=== PATIENT | female | born 1980 | race Caucasian/White ===

== ENCOUNTER 2025-06-09 08:50 | Outpatient (AMB) | payer OTHER, SELFPAY ==
--- NOTE | 2025-06-09 08:56 | MHC.PC.OV ---
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: Director E Learning / pulmonary issue Sound Tester Required: No Accompanied by: Self / Same As Patient Allergies No Known Allergies Allergy (Verified 06/09/25 08:56) Medication List - Last Reconciled 06/09/25 by Geraldine Perez MD albuterol sulfate 90 mcg/actuation 1 puff inhalation Q4H PRN buprenorphine-naloxone 2-0.5 mg 1 film sublingual DAILY carbamide peroxide 6.5% (Ear Drops (carbamide peroxide)) 5 drps otic (ears) BID clobetasol 0.05% 1 appl topical BID fluticasone propionate 50 mcg/actuation 1 spray intranasal DAILY mometasone-formoterol 200-5 mcg/actuation (Dulera) 2 puffs inhalation BID omeprazole 40 mg PO QAM Tobacco use date assessed: 06/09/25 Dental Screening Dental Screen Date: 06/09/25 Did you have a dental visit in the last 12 months?: Yes Did you have a dental problem in the last 6 months where you did not have access to dental care?: No Was dental information given to patient?: Patient has dentist HPI HPI Comments History of Present Illness Details The patient is a 45 year old female with PMH of COPD/Asthma?, Juan Jose's esophagus, presenting to [facility] care with a new primary care physician. The patient has a history of breathing problems, suspected to be COPD vs asthma, for which she currently uses albuterol as needed, Dulera twice daily, and a DuoNeb nebulizer for severe symptoms. She was hospitalized at [facility] for one day in February for a breathing attack, where she required oxygen. She has an upcoming appointment with a judicial assistant at [facility] this Wednesday 06/13. She has a history of Pearl's esophagus diagnosed via endoscopy several years ago and is supposed to have surveillance endoscopies every five years. Her last endoscopy was over five years ago, and she is now due for a repeat procedure. She takes omeprazole 40 mg, and her GI specialist is Dr. Ayala. The patient is on buprenorphine, which is managed by [facility], and she is currently on the lowest dose while weaning off. The treatment originated from Tramadol use following an accident around . Other medical history includes eczema, for which she uses clobetasol cream, and a history of earwax buildup managed with ear drops. She also uses Flonase. She had a full physical in January where she was told she has prediabetes. She has no history of surgeries. Family history is significant for heart attacks in both grandfathers, diabetes in both her maternal and paternal grandfathers, chronic lymphocytic leukemia in her mother, prostate cancer in her father, and ovarian cancer in her paternal grandmother. There is no known family history of colon cancer. [facility] Family History (Updated 06/09/25 @ 09:16 by Geraldine Perez MD) Mother CLL (chronic lymphocytic leukemia) Father Prostate cancer Social History Housing: [place] Patient Tobacco Use Status: Former Tobacco user Tobacco use type: Cigarette Years Smoked: 16 years-quit 14 years ago e-Cigarette/Vaping Use: Never Used service: No Current occupational status: employed Current occupation: [employer] Cognitive needs: No Hearing needs: No Vision needs: Yes Questionnaire PHQ-9 Over the last 2 weeks, how often have you been bothered by any of the following problems? 1. Little interest or pleasure in doing things: not at all 2. Feeling down, depressed, or hopeless: not at all 3. Trouble falling or staying asleep, or sleeping too much: not at all 4. Feeling tired or having little energy: not at all 5. Poor appetite or overeating: not at all 6. Feeling bad about yourself - or that you are a failure or have let yourself or your family down: not at all 7. Trouble concentrating on things, such as reading the newspaper or watching television: not at all 8. Moving or speaking so slowly that other people could have noticed. Or the opposite - being so fidgety or restless that you have been moving around a lot more than usual: not at all 9. Thoughts that you would be better off or of hurting yourself in some way: not at all Total score: 0 Depression Screening Interpretation: Negative Depression Screening Done: Yes Source: Developed by Drs. Aron L. KwameCristina blood Kurt Kroenke and colleagues, with an educational landen from [employer]. Thrive Questionnaire Date Thrive assessed: 06/09/25 I am a: Patient What is your living situation today?: I have a steady place to live Within the past 12 months, did the food you bought not last and you didn't have the money to get more?: Never true Within the past 12 months, did you worry whether your food would run out before you got money to buy more?: Never true Do you have trouble paying for medicines?: No Do you have trouble getting transportation to medical appointments?: No Do you have trouble paying your heating and electricity bill?: No Do you have trouble taking care of your child, family member or friend?: No Do you have trouble with day-to-day activities such as bathing, preparing meals, shopping, managing finances, etc.?: No Are you currently unemployed and looking for a job?: No Are you interested in more education?: No Please select the resources that you would like help with: None Currently or been in a relationship where the following occur: No concerns reported THRIVE Score: 0 AUDIT C Alcohol Use Questionnaire (AUDIT-C) 1. How often do you have a drink containing alcohol?: Never 3. How often do you have six or more drinks on one occasion?: Never Total Score: 0 NILA-7 AMB Questionnaire NILA-7 Date NILA - 7 assessed: 06/09/25 Feeling nervous, anxious, or on edge: 0 = Not at all Not being able to stop or control worryin = Not at all Worrying too much about different things: 0 = Not at all Trouble relaxin = Not at all Being so restless that it is hard to sit still: 0 = Not at all Becoming easily annoyed or irritable: 0 = Not at all Feeling afraid as if something awful might happen: 0 = Not at all Total NILA-7 score (0-4 normal; 5-9 mild; 10-14 moderate; 15-21 severe): 0 Source: Developed by Cristina Campos Kurt Kroenke and colleagues, with an educational landen from [employer]. Review of Systems Const Details: As per HPI. Physical exam (Primary Care) Vital Signs: Last Vital Signs Temp 97.5 F 06/09/25 08:58 Pulse 67 06/09/25 08:58 Resp 18 06/09/25 08:58 BP 112/72 06/09/25 08:58 Pulse Ox 95 06/09/25 08:58 Oxygen Delivery Method Room Air 06/09/25 08:58 BMI result Body Mass Index 30.0 Tobacco/Smoking Status: Tobacco use Status Tobacco use date assessed 06/09/25 06/09/25 09:06 Patient Tobacco Use Status Former Tobacco user 06/09/25 09:06 Tobacco use type Cigarette 06/09/25 09:06 e-Cigarette/Vaping Use Never Used 06/09/25 09:06 PHQ-9: PHQ-9 Score PHQ-9: Total score 0 06/09/25 09:06 Depression Screening Interpretation: Negative Thrive Assessment: Date of Thrive Assessment Date Thrive assessed 06/09/25 06/09/25 09:06 Currently or been in a relationship where the following occur: No concerns reported Const Other: Pertinent findings are in BOLD GENERAL APPEARANCE NAD, activity normal for age, well developed/ well nourished, no cyanosis, pallor, or diaphoresis. EYES lids/conjunctiva normal. EARS/NOSE/THROAT Mucous membranes moist, nares normal, lips/teeth normal uvula midline without oral pharyngeal erythema, exudate or swelling TMs normal bilaterally. No lymphangitis/lymphedema. HEAD/NECK normocephalic atraumatic, no facial trauma, neck is supple. RESPIRATORY respiratory effort normal, speaks in full sentences, no tripod position, no accessory muscle use. Lungs clear to auscultation without rhonchi, wheezes, rales CARDIAC Regular rate and rhythm, no edema. ABDOMINAL Soft, ND/NT. No evidence of fluid wave. No pulsatile masses on exam, rebound tenderness, Whitley sign or pain over Mcburney's point. MUSCLES/EXTREMITIES No abnormal range of motion, no swelling. SKIN Warm, pink and dry. No rashes, dermatoses, petechiae or lesions. NEUROLOGICAL Speech is clear and appropriate. Normal level of consciousness. Gait and coordination are normal. 5/5 strength in all extremities. PSYCH Normal mood and affect. Judgement/competence is appropriate Coding Level of Care Code New Pt Level 4 (88975) Diagnoses Healthcare maintenance Z00.00 Asthma J45.909 Pearl esophagus K22.70 Opioid use disorder in remission F11.91 Time Spent (min) 45 Assessment & Plan Assessment & Plan (1) Healthcare maintenance: Code(s): Z00.00 - Encounter for general adult medical examination without abnormal findings Category: Medical Plan: General labs ordered. Rest of healthcare maintenance will be reviewed with her next physical. Confirmed that the patient is established with N[facility] SHIFT MANAGER. (2) Asthma: Code(s): J45.909 - Unspecified asthma, uncomplicated Category: Medical Plan: - The patient will continue her current regimen of albuterol as needed, Dulera twice daily, and DuoNeb via nebulizer for severe symptoms. - Refills for albuterol and Dulera provided. - The patient will proceed with her scheduled appointment with a judicial assistant this Monday to further evaluate her breathing issues. (3) Pearl esophagus: Code(s): K22.70 - Pearl's esophagus without dysplasia Category: Medical Plan: - The patient will continue taking omeprazole 40 mg daily, and a refill was provided. - The patient was advised to schedule a follow-up appointment with her GI specialist, Dr. Ayala, as she is overdue for a surveillance endoscopy. - A new referral will be provided if required. (4) Opioid use disorder in remission: Code(s): F11.91 - Opioid use, unspecified, in remission Category: Medical Plan: - She was on Tramadol in the past after an accident which has been weaned off. - Was on Suboxone prior and currently on Buprenorphine. - [facility], and she is currently in the process of weaning off the medication. - She will continue to follow up with that provider for management. Plan I met with this 45-year-old female today to establish primary care. We reviewed her ongoing medical conditions, including her asthma, which is managed with multiple inhalers, and her history of Pearl's esophagus. I will provide refills for her albuterol and Dulera inhalers and supported her plan to see a judicial assistant for further evaluation this week. I also refilled her omeprazole and advised her to schedule a surveillance endoscopy with her GI specialist, as she is overdue, offering a new referral if needed. We discussed her history of buprenorphine use, which is managed by another clinic where she is actively weaning off the medication. To establish baseline records, I ordered a comprehensive set of labs, including a CBC, CMP, lipid panel, A1c, and screenings for hepatitis C and HIV, to which she consented. Orders: Orders Complete Blood Count no Diff Today Z00.00 - Encounter for general adult medical examination without abnormal findings Comprehensive Met. Panel Today Z00.00 - Encounter for general adult medical examination without abnormal findings HIV Ab/Ag Today Z00.00 - Encounter for general adult medical examination without abnormal findings Lipid Panel Today Z00.00 - Encounter for general adult medical examination without abnormal findings Hemoglobin A1c Today Z00.00 - Encounter for general adult medical examination without abnormal findings Hepatitis C Antibody Reflex Today Z00.00 - Encounter for general adult medical examination without abnormal findings TSH reflex Free T4 Today Z00.00 - Encounter for general adult medical examination without abnormal findings Medications: New omeprazole 40 mg PO QAM 60 caps 3RF albuterol sulfate 90 mcg/actuation 1 puff inhalation Q4H PRN 8.5 grams 3RF shortness of breath or wheezing mometasone-formoterol 200-5 mcg/actuation (Dulera) 2 puffs inhalation BID 13 grams 3RF
[2025-06-09 08:58] VITALS: BP 112/72; PULSE 67; RESP 18; TEMP 36.4; O2SAT 95
--- OUTSIDE RECORDS SUMMARY | 2025-06-09 09:23 | XMS_ITS | Clinical Summary ---
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 Max Daily Amount: 1 film 5 Active omeprazole (PriLOSEC) [address] capsule Take 1 capsule (40 mg total) by mouth 1 (one) time each day. 5 Active Ventolin HFA 90 mcg/actuation inhaler Inhale 1 puff by mouth every 4 (four) hours if needed for shortness of breath or wheezing. 6.7 g 1 5 Active ipratropium-alb uteroL (DUONEB) 0.5-2.5 mg/3 mL nebulizer solution Take 3 mL by nebulization every 6 (six) hours if needed for wheezing or shortness of breath for up to 42 doses. 126 mL 5 Active mometasone-form oterol (DULERA 200) 200-5 mcg/actuation inhaler Inhale 2 puffs by mouth 2 (two) times a day. Rinse mouth with water after use to reduce aftertaste and incidence of candidiasis. Do not swallow. 1 each 1 5 Active fluticasone propionate (FLONASE) 50 mcg/actuation nasal spray Administer 1 spray into each nostril 1 (one) time each day. Shake gently. Before first use, prime pump. After use, clean tip and replace cap. 16 g 1 Active Active Problems Problem Noted Date Diagnosed Date Reactive airway disease 03/11/2025 Encounters Date Type Department Care Team Description 03/11/2025 8:10 PM EDT - 03/12/2025 2:49 PM EDT Hospital Encounter [facility]rology [facility] [address] [place] [address] Wale Guerrier MD Jones, Christopher, MD Santoyo-Pacheco, Omar D, MD Acute respiratory failure with hypoxia [place] [place] [facility] [place] (Primary Dx); Exacerbation of asthma, unspecified asthma severity, unspecified whether persistent; Other emphysema [place] [place] [facility]28) Discharge Disposition: Home or Self Care from Last 3 Months Medical History Medical History Date Comments Opiate dependence [place] [place] [facility] [place] GERD (gastroesophageal reflux disease) Family History Medical History Relation Name Comments Cancer Maternal Grandmother Diabetes Other Coronary artery disease Paternal Grandmother Relation Name Status Comments Maternal Grandmother Other Paternal Grandmother Social History Tobacco Use Types Packs/Day Years Used Date Smoking Tobacco: Former Cigarettes Smokeless Tobacco: Never Tobacco Cessation:Counseling Given: Not Answered Comments:Quit 2013 Alcohol Use Standard Drinks/Week Comments Yes 0 (1 standard drink = 0.6 oz pur e alcohol) Very rare Interpersonal Safety Answer Date Record ed Physical Abuse Unrecognized value 03/12/2025 Verbal Abuse Unrecognized value 03/12/2025 Comments Unknown Sex and Gender Information Value Date Recorded Sex Assigned at Not on file Legal Sex Female 7:05 AM EST Gender Identity Not on file Sexual Orientation Not on file Last Filed Vital Signs Vital Sign Reading Time Taken Comments Blood Pressure 113/67 03/12/2025 8:35 AM EDT Pulse 93 03/12/2025 8:35 AM EDT Temperature 36.4 C (97.5 F) 03/12/2025 8:35 AM EDT Respiratory Rate 16 03/12/2025 8:35 AM EDT Oxygen Saturation 99% 03/12/2025 8:35 AM EDT Inhaled Oxygen Concentration - - Weight 80.7 kg (178 lb) 03/12/2025 12:29 AM EDT Height 160 cm (5' 2.99 ) 03/12/2025 12:29 AM EDT Body Mass Index 31.54 03/12/2025 12:29 AM EDT Plan of Treatment Health Maintenance Due Date Last Done Comments Breast Cancer Screening 1982 DTaP,Tdap,and Td Vaccines (1 - Tdap) 2001 Hepatitis A Vaccines (1 of 2 - Risk 2-dose series) 2001 Hepatitis B Vaccines (1 of 3 - 19+ 3-dose series) 2001 Pneumococcal Vaccine: Pediat rics (0 to 5 Years) and At-Risk Patients (6 to 49 Years) (1 of 2 - PCV) 2001 Cervical Cancer Screening: P ap Smear 2003 HPV Vaccines (1 - 3-dose SCD M series) 2009 HIV Screening 05/22/2022 Social Influencers of Health Screening 05/22/2022 Depression Screening 06/19/2024 COVID-19 Vaccine (1 - 2024-2 6 season) 2025 Influenza Vaccine (#1) 2025 Cholesterol Screening (Lipid Panel) 02/13/2030 02/13/2025 RSV Immunization Adult Patie nts (1 - 1-dose 75+ series) 2057 Hepatitis C Screening Completed 02/13/2025 HIB Vaccines Aged Out No longer eligi ble based on patient's age to complete this topic IPV Vaccines Aged Out No longer eligi ble based on patient's age to complete this topic MMR Vaccines Aged Out No longer eligi ble based on patient's age to complete this topic Meningococcal ACWY Vaccine Aged Out N o longer eligible based on patient's age to complete this topic Meningococcal B Vaccine Aged Out No l onger eligible based on patient's age to complete this topic RSV Immunization Patients Un deric 20 months Aged Out No longer eligible b ased on patient's age to complete this topic Varicella Vaccines Aged Out No longer eligible based on patient's age to complete this topic Procedures Procedure Name Priority Date/Time Associated Diagnosis Comments PEP THERAPY Routine 03/12/2025 8:58 AM EDT HOME O2 EVAL (DESATURATION SCREEN) Routine 03/12/2025 8:43 AM EDT CBC WITH AUTO DIFFERENTIAL Routine 03/12/2025 5:58 AM EDT CBC AND DIFFERENTIAL Routine 03/12/2025 5:58 AM EDT BASIC METABOLIC PANEL Routine 03/12/2025 5:58 AM EDT RESPIRATORY VIRUS PANEL MOLECULAR STUDY STAT 03/12/2025 12:[address] ANGIO CHEST WO AND/OR W CONTRAST STAT 03/11/2025 10:15 PM EDT Acute respiratory failure with hypoxia (CMS/HCC V24, CMS/HCC V28) XR CHEST 1 VIEW STAT 03/11/2025 9:26 PM EDT C-REACTIVE PROTEIN Add-On 03/11/2025 8: 43 PM EDT HCG, SERUM, QUALITATIVE STAT Add-on 03/11/2025 8:43 PM EDT B-TYPE NATRIURETIC PEPTIDE STAT 03/11/2025 8:43 PM EDT TROPONIN I HIGH SENSITIVITY STAT 03/11/2025 8:43 PM EDT COMPREHENSIVE METABOLIC PANEL STAT 03/11/2025 8:43 PM EDT CBC WITH AUTO DIFFERENTIAL STAT 03/11/2025 8:43 PM EDT CBC AND DIFFERENTIAL STAT 03/11/2025 8:43 PM EDT ECG 12-LEAD STAT 03/11/2025 8:21 PM EDT TX CRITICAL CARE 30-74 MINUTES Routine 03/11/2025 8:07 PM EDT HEPATITIS C VIRUS QUANTITATIVE PCR Routine 02/13/2025 7:16 AM EDT Laboratory tests ordered as part of a complete physical exam (CPE) Palpitations Low libido Need for hepatitis C screening test LIPID PANEL WITH REFLEX TO DIRECT LDL Routine 02/13/2025 7:16 AM EDT Laboratory tests ordered as part of a complete physical exam (CPE) Palpitations Low libido Need for hepatitis C screening test from Last 3 Months or Most Recently Relevant to Health Maintenance Results * (ABNORMAL) CBC auto differential (03/12/2025 5:58 AM EDT) Only the most recent of2 resultswithin the time period is included. WBC 10.4 4.8 - 10.8 K/mcL LAB HEMETOLOGY METHOD 03/12/2025 6:46 AM [facility] RBC 5.60(H) 3.80 - 4.80 M/mcL LAB HEMETOLOGY METHOD 03/12/2025 6:46 AM [facility] Hemoglobin 15.6 11.5 - 16.0 g/dL LAB HEMETOLOGY METHOD 03/12/2025 6:46 AM [facility] Hematocrit 46.7 35.0 - 47.0 % LAB HEMETOLOGY METHOD 03/12/2025 6:46 AM [facility] MCV 84.0 79.0 - 98.0 FL LAB HEMETOLOGY METHOD 03/12/2025 6:46 AM [facility] MCH 28.1 27.0 - 32.0 pcg LAB HEMETOLOGY METHOD 03/12/2025 6:46 AM [facility] MCHC 33.4 32.0 - 37.0 g/dL LAB HEMETOLOGY METHOD 03/12/2025 6:46 AM [facility] RDW 12.8 11.0 - 15.0 % LAB HEMETOLOGY METHOD 03/12/2025 6:46 AM [facility] Platelets 335 130 - 400 K/mcL LAB HEMETOLOGY METHOD 03/12[facility]25 6:[facility] MPV 9.1 7.0 - 11.0 FL LAB HEMETOLOGY METHOD 03/12/2025 6:46 AM [facility] NRBC 0.0 <1.0 % LAB HEMETOLOGY METHOD 03/12/2025 6:46 AM [facility] NRBC Absolute 0.00 <0.10 K/mcL LAB HEMETOLOGY METHOD 03/12/2025 6:46 AM [facility] Neutrophils Relative 91.1 % LAB HEMETOLOGY METHOD 03/12/2025 6:46 AM [facility] Lymphocytes Relative 7.5 % LAB HEMETOLOGY METHOD 03/12/2025 6:46 AM [facility] Monocytes Relative 1.0 % LAB HEMETOLOGY METHOD 03/12/2025 6:46 AM [facility] Eosinophils Relative 0.0 % LAB HEMETOLOGY METHOD 03/12/2025 6:46 AM [facility] Basophils Relative 0.1 % LAB HEMETOLOGY METHOD 03/12/2025 6:46 AM [facility] Immature Granulocytes Relative 0.3 % LAB HEMETOLOGY METHOD 03/12/2025 6:46 AM [facility] Neutrophils Absolute 9.43(H) 1.50 - 7.00 K/mcL LAB HEMETOLOGY METHOD 03/12/2025 6:46 AM [facility] Lymphocytes Absolute 0.78(L) 1.00 - 5.00 K/mcL LAB HEMETOLOGY METHOD 03/12/2025 6:46 AM [facility] Monocytes Absolute 0.10(L) 0.20 - 1.00 K/mcL LAB HEMETOLOGY METHOD 03/12/2025 6:46 AM [facility] Eosinophils Absolute 0.00 0.00 - 0.50 K/mcL LAB HEMETOLOGY METHOD 03/12/2025 6:46 AM EDT [facility] Basophils Absolute 0.01 0.00 - 0.20 K/[facility] LAB HEMETOLOGY METHOD 03/12/2025 6:46 AM EDT [facility] Immature Granulocytes Absolute 0.03 0.00 - 0.03 K/[facility] LAB HEMETOLOGY METHOD 03/12/2025 6:46 AM EDT [facility] Blood Venous blood specimen / Unknown Venipuncture / Unknown 03/12/2025 5:58 AM EDT 03/12/2025 6:13 AM EDT us Manish Thurston MD LAB BLOOD ORDERABLES Final Result [facility] [address] [place] [address], * (ABNORMAL) Basic metabolic panel (03/12/2025 5:58 AM EDT) Sodium 138 133 - 145 mmol/L LAB CHEMISTRY METHOD 03/12/2025 7:20 AM [facility] Potassium 4.1 3.5 - 5.5 mmol/L LAB CHEMISTRY METHOD 03/12/2025 7:20 AM [facility] Chloride 105 96 - 110 mmol/L LAB CHEMISTRY METHOD 03/12/2025 7:20 AM [facility] CO2 22 21 - 32 mmol/L LAB CHEMISTRY METHOD 03/12/2025 7:20 AM [facility] Anion Gap 11 3 - 11 LAB CHEMISTRY METHOD 03/12/2025 7:20 AM [facility] Glucose 163(H) 70 - 100 mg/dL LAB CHEMISTRY METHOD 03/12/2025 7:20 AM [facility] BUN 11 5 - 25 mg/dL LAB CHEMISTRY METHOD 03/12/2025 7:20 AM EDT [facility] Creatinine 0.81 0.50 - 1.10 mg/dL LAB CHEMISTRY METHOD 03/12/2025 7:20 AM EDT [facility] eGFR 93 >=60 mL/min/1. 73m2 LAB CHEMISTRY METHOD 03/12/2025 7:20 AM EDT [facility] Comment:Calculation based on the Chronic Kidney Disease Epidemiology Collaboration (CKD-EPI) equation refit without adjustment for race. BUN/Creatinine Ratio 13.6 LAB CHEMISTRY METHOD 03/12/2025 7:20 AM EDT [facility] Calcium 9.6 8.5 - 10.5 mg/dL LAB CHEMISTRY METHOD 03/12/2025 7:20 AM EDT [facility] Blood Venous blood specimen / Unknown Venipuncture / Unknown 03/12/2025 5:58 AM EDT 03/12/2025 6:13 AM EDT us Manish Thurston MD LAB BLOOD ORDERABLES Final Result [facility] [address] [place] [address], * Respiratory virus panel molecular study (03/12/2025 12:37 AM EDT) Pathologist [facility] Adenovirus Detection by PCR Not Detected Not Detected LAB MICROBIOLOGY METHOD 03/12/2025 1:49 AM EDT [facility] Influenza A PCR Not Detected Not Detected LAB MICROBIOLOGY METHOD 03/12/2025 1:49 AM EDT [facility] Influenza B PCR Not Detected Not Detected LAB MICROBIOLOGY METHOD 03/12/2025 1:49 AM EDT [facility] Coronavirus 229E Not Detected Not Detected LAB MICROBIOLOGY METHOD 03/12/2025 1:49 AM EDT [facility] Coronavirus HKU1 Not Detected Not Detected LAB MICROBIOLOGY METHOD 03/12/2025 1:49 AM EDT [facility] Coronavirus OC43 Not Detected Not Detected LAB MICROBIOLOGY METHOD 03/12/2025 1:49 AM EDT [facility] Coronavirus NL63 Not Detected Not Detected LAB MICROBIOLOGY METHOD 03/12/2025 1:49 AM EDT [facility] Parainfluenza Virus 1 Not Detected Not Detected LAB MICROBIOLOGY METHOD 03/12/2025 1:49 AM EDT [facility] Parainfluenza Virus 2 Not Detected Not Detected LAB MICROBIOLOGY METHOD 03/12/2025 1:49 AM EDT [facility] Parainfluenza Virus 3 Not Detected Not Detected LAB MICROBIOLOGY METHOD 03/12/2025 1:49 AM EDT [facility] Parainfluenza Virus 4 Not Detected Not Detected LAB MICROBIOLOGY METHOD 03/12/2025 1:49 AM EDT [facility] RSV PCR Not Detected Not Detected LAB MICROBIOLOGY METHOD 03/12/2025 1:49 AM EDT [facility] Human Metapneumovirus A and B Not Detected Not Detected LAB MICROBIOLOGY METHOD 03/12/2025 1:49 AM EDT [facility] Rhinovirus/Entero virus Not Detected Not Detected LAB MICROBIOLOGY METHOD 03/12/2025 1:49 AM EDT [facility] Bordetella pertussis Not Detected Not Detected LAB MICROBIOLOGY METHOD 03/12/2025 1:49 AM EDT [facility] Bordetella parapertussis Not Detected Not Detected LAB MICROBIOLOGY METHOD 03/12/2025 1:49 AM EDT [facility] Mycoplasma pneumo by PCR Not Detected Not Detected LAB MICROBIOLOGY METHOD 03/12/2025 1:49 AM EDT [facility] Chlamydia pneumoniae Not Detected Not Detected LAB MICROBIOLOGY METHOD 03/12/2025 1:49 AM EDT [facility] SARS COV-2 Not Detected Not Detected LAB MICROBIOLOGY METHOD 03/12/2025 1:49 AM EDT [facility] Swab Nasopharyngeal structure / Unknown Non-blood Collection / Unknown 03/12/2025 12:37 AM EDT 03/12/2025 12:53 AM EDT Narrative [facility] - 03/12/2025 1:49 AM EDT Testing was performed using the InboxFever Respiratory Pathogen PCR Assay. All results must be correlated with the clinical findings. Results should not be used as the sole basis for diagnosis. False Negative results may occur from the presence of sequence variants in the region targeted by the assay or the presence of inhibitors. Results may be affected by concurrent antiviral/antimicrobial therapy or levels of organisms that are below the limit of detection. us Manish Thurston MD LAB MICROBIOLOGY - GENERAL ORDERABLES Final Result [facility] [address] [place] [address], * CT Angio Chest wo and/or w Contrast (03/11/2025 10:15 PM EDT) Anatomical Region Laterality Modality Body Computed Tomogra phy 03/11/2025 10:5 9 PM EDT Impressions 03/11/2025 10:59 PM EDT 1. No acute intrathoracic findings. This document has been electronically signed by: Librado Anthony MD on 03/11/2025 22:59:35 Narrative 03/11/2025 10:59 PM EDT INDICATION: PE suspected, high prob CT angiography chest with contrast. 3D Postprocessing. Comparison: CR - XR CHEST 1 VW - 03/11/25 21:19 EDT Findings: The heart size is normal. RV/LV ratio is normal. The thoracic aorta is normal caliber. No pulmonary artery filling defects. The visualized thyroid and mediastinum are unremarkable. Minimal subsegmental atelectasis in the right upper lobe. No consolidation, pleural effusion or pneumothorax. The upper abdomen is unremarkable. No acute fractures. Procedure Note Librado Anthony MD - 03/11/2025 INDICATION: PE suspected, high prob CT angiography chest with contrast. 3D Postprocessing. Comparison: CR - XR CHEST 1 VW - 03/11/25 21:19 EDT Findings: The heart size is normal. RV/LV ratio is normal. The thoracic aorta is normal caliber. No pulmonary artery filling defects. The visualized thyroid and mediastinum are unremarkable. Minimal subsegmental atelectasis in the right upper lobe. No consolidation, pleural effusion or pneumothorax. The upper abdomen is unremarkable. No acute fractures. IMPRESSION: 1. No acute intrathoracic findings. This document has been electronically signed by: Librado Anthony MD on 03/11/2025 22:59:35 Wale Guerrier MD IMG CT PROCEDURES Final Resu lt * XR Chest 1 View (03/11/2025 9:26 PM EDT) Anatomical Region Laterality Modality Body Radiographic Fidelina ging 03/11/2025 10:5 9 PM EDT Impressions 03/11/2025 10:59 PM EDT 1. No acute findings. This document has been electronically signed by: Librado Anthony MD on 03/11/2025 22:59:15 Narrative 03/11/2025 10:59 PM EDT INDICATION: OTHER 1 view chest x-ray Comparison: CT - CT ANGIO CHEST WO AND OR W CONTRAST - 03/11/25 22:14 EDT DX/TX/SR - CHEST 2 VIEWS - 08/02/23 09:50 EST Findings: No consolidation or effusion. Heart size is normal. No acute fracture. Procedure Note Librado Anthony MD - 03/11/2025 INDICATION: OTHER 1 view chest x-ray Comparison: CT - CT ANGIO CHEST WO AND OR W CONTRAST - 03/11/25 22:14 EDT DX/TX/SR - CHEST 2 VIEWS - 08/02/23 09:50 EST Findings: No consolidation or effusion. Heart size is normal. No acute fracture. IMPRESSION: 1. No acute findings. This document has been electronically signed by: Librado Anthony MD on 03/11/2025 22:59:15 Wale Guerrier MD IMG XR PROCEDURES Final Resu lt * Troponin I High Sensitivity (03/11/2025 8:43 PM EDT) [facility] High Sensitivity Troponin I <3 <=54 ng/L LAB CHEMISTRY METHOD 03/11/2025 9:50 PM EDT [facility] Blood Venous blood specimen / Unknown Venipuncture / Unknown 03/11/2025 8:43 PM EDT 03/11/2025 9:18 PM EDT Narrative [facility] - 03/11/2025 9:50 PM EDT High levels of biotin in samples may falsely decrease hsTroponin values. Use caution when interpreting hsTroponin results in patients taking biotin who exhibit renal impairment (eGFR <60) or in patients taking more than 20 mg/day of biotin. Wale Guerrier MD LAB BLOOD ORDERABLES Final R esult Performing Organization Address City/[facility]/ZIP Co de Phone Number [facility] [address] [place] [address], * (ABNORMAL) C-reactive protein (03/11/2025 8:43 PM EDT) [facility] C-Reactive Protein 1.10(H) <=0.50 mg/dL LAB CHEMISTRY METHOD 03/12/2025 12:12 AM EDT [facility] Blood Venous blood specimen / Unknown Venipuncture / Unknown 03/11/2025 8:43 PM EDT 03/11/2025 9:18 PM EDT Manish Thurston MD LAB BLOOD ORDERABLES Final Result [facility] [address] [place] [address], [place] [phone] * hCG, serum, qualitative (03/11/2025 8:43 PM EDT) [facility] hCG Qual Negative Negative 03/11/2025 9:45 PM EDT [facility] Blood Venous blood specimen / Unknown Venipuncture / Unknown 03/11/2025 8:43 PM EDT 03/11/2025 9:18 PM EDT Wale Guerrier MD LAB BLOOD ORDERABLES Final R esult Performing Organization Address [facility]/ZIP Co de Phone Number [facility] [address] [place] [address], [place] [phone] * B-Type Natriuretic Peptide (BNP) (03/11/2025 8:43 PM EDT) Pathologist [facility] BNP 8 <=100 pcg/mL LAB CHEMISTRY METHOD 03/11/2025 10:46 PM EDT [facility] Blood Venous blood specimen / Unknown Venipuncture / Unknown 03/11/2025 8:43 PM EDT 03/11/2025 9:18 PM EDT Wale Guerrier MD LAB BLOOD ORDERABLES Final R esult Performing Organization Address City/[facility]/ZIP Co de Phone Number [facility] [address] [place] [address], [place] [phone] * (ABNORMAL) Comprehensive Metabolic Panel (CMP) (03/11/2025 8:43 PM EDT) Pathologist [facility] Sodium 139 133 - 145 mmol/L LAB CHEMISTRY METHOD 03/11/2025 9:58 PM EDT [facility] Potassium 4.1 3.5 - 5.5 mmol/L LAB CHEMISTRY METHOD 03/11/2025 9:58 PM EDT [facility] Chloride 105 96 - 110 mmol/L LAB CHEMISTRY METHOD 03/11/2025 9:58 PM EDT [facility] CO2 26 21 - 32 mmol/L LAB CHEMISTRY METHOD 03/11/2025 9:58 PM EDT [facility] Anion Gap 8 3 - 11 LAB CHEMISTRY METHOD 03/11/2025 9:58 PM [facility] Glucose 128(H) 70 - 100 mg/dL LAB CHEMISTRY METHOD 03/11/2025 9:58 PM [facility] BUN 11 5 - 25 mg/dL LAB CHEMISTRY METHOD 03/11/2025 9:58 PM [facility] Creatinine 0.84 0.50 - 1.10 mg/dL LAB CHEMISTRY METHOD 03/11/2025 9:58 PM [facility] eGFR 89 >=60 mL/min/1. 73m2 LAB CHEMISTRY METHOD 03/11/2025 9:58 PM [facility] Comment:Calculation based on the Chronic Kidney Disease Epidemiology Collaboration (CKD-EPI) equation refit without adjustment for race. BUN/Creatinine Ratio 13.1 LAB CHEMISTRY METHOD 03/11/2025 9:58 PM [facility] Calcium 9.3 8.5 - 10.5 mg/dL LAB CHEMISTRY METHOD 03/11/2025 9:58 PM [facility] AST (SGOT) 24 10 - 42 unit/L LAB CHEMISTRY METHOD 03/11/2025 9:58 PM [facility] ALT (SGPT) 20 10 - 60 unit/L LAB CHEMISTRY METHOD 03/11/2025 9:58 PM [facility] Alkaline Phosphatase 53 42 - 121 unit/L LAB CHEMISTRY METHOD 03/11/2025 9:58 PM [facility] Total Protein 7.7 6.0 - 8.0 g/dL LAB CHEMISTRY METHOD 03/11/2025 9:58 PM [facility] Albumin 4.1 3.2 - 5.0 g/dL LAB CHEMISTRY METHOD 03/11/2025 9:58 PM [facility] Total Bilirubin 0.4 0.0 - 1.4 mg/dL LAB CHEMISTRY METHOD 03/11/2025 9:58 PM [facility] Blood Venous blood specimen / Unknown Venipuncture / Unknown 03/11/2025 8:43 PM EDT 03/11/2025 9:18 PM EDT Wale Guerrier MD LAB BLOOD ORDERABLES Final R esult Performing Organization Address City/[facility]/ZIP Co de Phone Number [facility] [address] [place] [address], [place] [phone] * ECG 12 lead (03/11/2025 8:21 PM EDT) Ventricular Rate ECG 87 BPM GEMUSE Atrial Rate 87 BPM GEMUSE P-R Interval 150 ms GEMUSE QRS Duration 76 ms GEMUSE Q-T Interval 382 ms GEMUSE QTc 459 ms GEMUSE P Wave [place] 80 degrees GEMUSE R [place] 19 degrees GEMUSE T [place] 45 degrees GEMUSE ECG Interpretation Normal sinus rhythm with sinus arrhythmia Normal ECG No previous ECGs available Confirmed by MONA SINGH ([id number]) on 03/13/2025 11:08:42 AM GEMUSE 03/11/2025 8:21 PM EDT 03/13/2025 11:08 AM EDT Wale Guerrier MD ECG ORDERABLES Final Result Performing Organization Address City/[facility]/ZIP Co de Phone Number GEM[facility] * [place] CRITICAL CARE 30-74 MINUTES (03/11/2025 8:07 PM EDT) Narrative Wale Guerrier MD - 03/11/2025 8:07 PM EDT Wale Guerrier MD 03/12/2025 12:09 AM Critical Care Performed by: Wale Guerrier MD Authorized by: Wale Guerrier MD Critical care provider statement: Critical care time (minutes): 36 Total face to face critical care time (minutes): 20 Critical care time was exclusive of: Separately billable procedures and treating other patients Critical care was necessary to treat or prevent imminent or life-threatening deterioration of the following conditions: Circulatory failure, cardiac failure, respiratory failure and shock Critical care was time spent personally by me on the following activities: Development of treatment plan with patient or surrogate, discussions with consultants, evaluation of patient's response to treatment, ordering and review of laboratory studies, ordering and review of radiographic studies, re-evaluation of patient's condition, review of old charts, ordering and performing treatments and interventions, examination of patient, pulse oximetry and obtaining history from patient or surrogate Face to face critical care was time spent personally by me on the following activities: Examination of patient, evaluation of patient's response to treatment, obtaining history from patient or surrogate, re-evaluation of patient's condition, pulse oximetry and development of treatment plan with patient or surrogate I assumed direction of critical care for this patient from another provider in my specialty: no Care discussed with: admitting provider Comments: Acute asthma exacerbation respiratory failure requiring multiple DuoNebs and IV magnesium with reassessments us Wale Guerrier MD IN CLINIC/BEDSIDE ORDERABLES Final Result * (ABNORMAL) Lipid panel with reflex to direct LDL (02/13/2025 7:16 AM EDT) Cholesterol 165 0 - 200 mg/dL LAB CHEMISTRY METHOD 02/13/2025 11:54 AM [facility] [facility] Triglycerides 80 0 - 150 mg/dL LAB CHEMISTRY METHOD 02/13/2025 11:54 AM [facility] HDL 48 >=40 mg/dL LAB CHEMISTRY METHOD 02/13/2025 11:54 AM [facility] LDL Calculated 101(H) 0 - 100 mg/dL LAB CHEMISTRY METHOD 02/13/2025 11:54 AM [facility] Comment:Estimated LDL Calcul ated using equation: Total cholesterol - HDL cholesterol - (Triglycerides/5) VLDL Cholesterol Rufus 16 mg/dL LAB CHEMISTRY METHOD 02/13/2025 11:54 AM [facility] Non HDL Chol. (LDL+VLDL) 117 <145 mg/dL LAB CHEMISTRY METHOD 02/13/2025 11:54 AM [facility] Chol/HDL Ratio 3.4 0.0 - 4.4 LAB CHEMISTRY METHOD 02/13/2025 11:54 AM EDT [facility] Blood Venous blood specimen / Unknown Venipuncture / Unknown 02/13/2025 7:16 AM EDT 02/13/2025 7:[address] [facility] BLOOD ORDERABLES Final Resul t Performing Organization Address [facility] Co de Phone Number [facility] [address] [place] [address], [place] [phone] * Hepatitis C virus quantitative molecular study (02/13/2025 7:16 AM EDT) HCV Qual Interp Not Detected Not Detected LAB MOLECULAR DIAGNOSTICS METHOD 02/13/2025 2:33 PM EDT [facility] Comment:HCV RNA not detected , unable to report quantitative results. Blood Venous blood specimen / Unknown Venipuncture / Unknown 02/13/2025 7:16 AM EDT 02/13/2025 7:[address] [facility] LAB BLOOD ORDERABLES Final Resul t Performing Organization Address [facility] de Phone Number [facility] [address] [place] [address], [place] [phone] from Last 3 Months or Most Recently Relevant to Health Maintenance Insurance MEDICAID - [place] Advance Directives * Full Code - Default (Latest Code Status on File) Date Activated Date Inactivated Comments 03/11/2025 11:46 PM 03/12/2025 5:21 PM This is ord er is used when code status has not been discussed with the patient, or code status is otherwise unknown/unconfirmed To update the patient's code status, place a code status order. Do not modify or discontinue any currently active code status orders. Care Teams [employer] Relationship Specialty Start Date End Date Dillan Camarena DO [address] [place] [phone] PCP - General Internal Medicine 02/13/25
== END 2025-06-09 09:27 | disposition home or self-care (01) ==
LOC: HO.HMCH 08:51
PROVIDERS: PCP Internal Medicine; Visit Provider Internal Medicine
DX: Z00.00 Encounter for general adult medical examination without abnormal findings (principal); J45.909 Unspecified asthma, uncomplicated; K22.70 Barrett's esophagus without dysplasia; F11.91 Opioid use, unspecified, in remission

== ENCOUNTER → 2025-06-09 08:50 | Outpatient (BNVA) | payer OTHER, SELFPAY | PROVIDERS: PCP Internal Medicine; Visit Provider Internal Medicine | DX: K22.70 Barrett's esophagus without dysplasia (principal); J45.909 Unspecified asthma, uncomplicated; F11.91 Opioid use, unspecified, in remission; L20.9 Atopic dermatitis, unspecified | CPT/HCPCS: 99202 ==